=== PATIENT | female | born 1985 | race Caucasian/White ===

== ENCOUNTER 2018-08-11 16:18 | Emergency (ER) | payer MEDICAID ==
--- OUTSIDE RECORDS SUMMARY | 2018-08-11 16:43 | XMS REPORT | Continuity of Care Document ---
:1985 External Reference #:[id number] Author Name Tere Pabon M.D. 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 Onset: 08/04/2018 Bipolar disorder Tere Pabon M.D. Onset: 08/04/2018 Chronic hepatitis C Tere Pabon M.D. Onset: 08/04/2018 Low back pain Silvana Wright MD Onset: 10/14/2013 Family History Date Family Member(s) Observation Comments General Heart Disease General C difficile Social History Type Date Description Comments Sex Unknown Lives With Diet Healthy, Well Balanced Occupation Unemployed ADL's/IADL's Independent with all ADL's Tobacco Use Start: Unknown Never Smoked Cigarettes ETOH Use Denies alcohol use Tobacco Use Start: Unknown Patient has never smoked Smoking Status Reviewed: 08/04/18 Patient has never smoked Allergies, Adverse Reactions, Alerts Active Allergies Reaction Severity Comments Date Ibuprofen GI bleed 11/25/2012 Vicodin unspecified 11/25/2012 Prednisone Critical 02/16/2018 Medications Active Medications SIG Qnty Indications Ordering Provider Date Ventolin HFA Unknown 108(90Base) mcg/Act Aerosol Gabapentin 1 by mouth three Unknown 300mg times a day Capsules Prilosec Unknown 40mg Singulair 1 by mouth every Unknown 10mg Tablets day Zyrtec Allergy 1 tab by mouth Unknown 10mg every night Tablets Dispers Hydroxyzine HCL take 1-2 tablets Unknown 25mg by mouth at Tablets bedtime as needed for insomnia Suboxone Place One Film Unknown 8-2mg Film Under The Tongue Every Day Maximum Daily Dose 1 Film History Medications No Active Medications Unknown 09/29/2013 - 10/14/2013 Tramadol HCL take one tablet 50tabs Sanjay Shipman MD 01/15/2011 - Unknown 50mg Tablets po q 4 hrs prn pain. Meloxicam 1 po qd 30tabs Sanjay Shipman MD 09/11/2010 - 15mg Tablets 07/29/2018 Oxycodone HCL 1 1/2 tab by Unknown - Tablets mouth twice a day 09/29/2013 Geodon Unknown - Capsules 09/29/2013 Oxycodone HCL prn Unknown - Tablets 07/29/2018 Tylenol Unknown - 500mg Tablets 07/29/2018 Suboxine 1 PO Every Meal Unknown - 8mg Films And AT hs 07/29/2018 Klonopin 1 tab every Unknown - 0.5mg Tablets morning as 07/29/2018 needed, 2 tabs at bedtime daily. Ibuprofen 1-2 tabs by mouth Unknown - 200mg Tablets four times a day 07/29/2018 after meals as needed Immunizations Description No Information Available Vital Signs Date Vital Result Comment 08/04/2018 2:33pm BP Systolic Sitting Right Arm 115 mmHg BP Diastolic Sitting Right Arm 81 mmHg Body Temperature 96.8 F Heart Rate 73 /min Height 64.5 inches 5'4.50" Weight 212.00 lb BMI (Body Mass Index) 35.8 kg/m2 BSA (Body Surface Area) 2.02 m2 Winner body weight in kilograms 56 kg 10/14/2013 9:30am BP Systolic Sitting Right Arm 114 mmHg BP Diastolic Sitting Right Arm 78 mmHg Height 64.5 inches 5'4.50" Weight 216.00 lb BMI (Body Mass Index) 36.5 kg/m2 BSA (Body Surface Area) 2.03 m2 10/04/2013 2:25pm BP Systolic Sitting Left Arm 118 mmHg BP Diastolic Sitting Left Arm 60 mmHg Height 64.75 inches 5'4.75" Weight 216.00 lb BMI (Body Mass Index) 36.2 kg/m2 BSA (Body Surface Area) 2.04 m2 08/27/2010 10:10am Height 64 inches 5'4" Weight 235.00 lb 01/03/2008 1:45pm Height 62 inches 5'2" Weight 206.00 lb 02/16/2007 1:43pm Height 62 inches 5'2" Weight 195.00 lb Results Description No Information Available Procedures Description No Information Available Encounters Type Date Location Provider Dx Diagnosis Office Visit 08/04/2018 [facility] & Tere Pabon M.D. 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 Plan of Treatment Future Appointment(s):09/01/2018 1:30 pm - eTre Pabon M.D[facility] at [facility]/30/2018 9:00 am - Zeke Garber MD at 08/04/2018 - Tere Pabon M.D.B18.2 Chronic viral hepatitis CNew Labs:Ethyl Alcohol, Ordered: 08/04/18CK, Ordered: 08/04/18Comprehensive Metabolic Panel, Ordered: 08/04/18CBC W/Automated Diff, Ordered: 08/04/18HCV Rna By PCR (Quant), Ordered: 08/04/18HIV Panel [id number], Ordered: 08/04/18Hepatitis A AB, Total, Ordered: 08/04/18Hepatitis B Surface Antibody, Ordered: 08/04/18Protime, Ordered : 08/04/18Drugs Of Abuse-Urine Screen 7, Ordered: 08/04/18Hepatitis C Virus Genotyping, Ordered: 08/04/18Quantiferon Client Incubated, Ordered: 08/04/18New Xrays:Ultrasound, Abdomen Limited, Ordered: 08/04/18Follow up:4 weeksRecommendations:No IV drug use. No alcohol Less than 2 grams of Tylenol a day if needed.F31.9 Bipolar disorder, [id number] Anxiety disorder, unspecified
== END 2018-08-11 17:32 | disposition left against medical advice (07) ==
LOC: UCCORT 16:18
DX: Z53.21 Procedure and treatment not carried out due to patient leaving prior to being seen by health care provider (principal)

== ENCOUNTER 2018-11-01 15:43 | Emergency (ER) | payer MEDICAID ==
[2018-11-01 16:35] VITALS: BP 145/54
--- NOTE | 2018-11-01 16:42 | UC ---
General HPI - HPI Summary HPI Summary: per triage, Pt was noticed sinus pressure, congestion, R ear pain, and cough since last Thursday. Pt noticed 2-3 days ago that she was having some chest congestion, wheezing, and difficulty breathing when she lays flat. Pt reports she has a hx of asthma and the heat seem to exacerbate it. pt ran out of her inhaler. no fever or chest pain. - History of Current Complaint Chief Complaint: UCGeneralIllness Stated Complaint: VOMITTING Time Seen by Provider: 11/01/18 16:36 Hx Obtained From: Patient Hx Last Menstrual Period: 10/18/18 Onset/Duration: Gradual Onset Pain Intensity: 6 Associated Signs & Symptoms: Positive: Cough, SOB, Weakness. Negative: Chest Pain, Fever, Headache - Allergy/Home Medications Allergies/Adverse Reactions: Allergies Allergy/AdvReac Type Severity Reaction Status Date / Time ibuprofen Allergy Mild Itching Verified 08/11/18 17:25 ketorolac [From Toradol] Allergy Hives Verified 08/11/18 17:25 tramadol Allergy Hives Verified 08/11/18 17:25 Home Medications: Home Medications Buprenorp/Nalox 8-2 MG SL TAB [Suboxone 8-2 mg SL TAB*] 1 tab PO BID 11/01/18 [ History Confirmed 11/01/18] Oxycodone/ASA 5/325 (NF) [Percodan 5/325 (NF)] 1 tab PO ONCE 11/01/18 [History Confirmed 11/01/18] PMH/Surg Hx/FS Hx/Imm Hx - Additional Past Medical History Additional PMH: HepC, chronic headaches. Respiratory History: Asthma - Surgical History Surgical History: Yes Surgery Procedure, Year, and Place: 2 c-sections. tubal ligation. cholecystectomy. hernia repair x 2 - Family History Known Family History: Positive: Cardiac Disease - Social History Alcohol Use: None Substance Use Type: None Substance Use Comment - Amount & Last Used: on suboxone Smoking Status (MU): Never Smoked Tobacco Type: Cigarettes Amount Used/How Often: 1/2 ppd Length of Time of Smoking/Using Tobacco: 13 yrs Have You Smoked in the Last Year: Yes - Immunization History Most Recent Influenza Vaccination: would like to be administered tomorrow Most Recent Tetanus Shot: UTD Most Recent Pneumonia Vaccination: has had in the past Review of Systems All Other Systems Reviewed And Are Negative: Yes Eyes: Negative: Drainage, Eye Redness ENT: Positive: Ear Ache, Nasal Discharge, Sinus Congestion Respiratory: Positive: Shortness Of Breath, Cough Physical Exam Triage Information Reviewed: Yes Appearance: Well-Appearing Vital Signs: Initial Vital Signs Temp 98.8 F 11/01/18 16:24 Pulse 75 11/01/18 16:24 Resp 18 11/01/18 16:24 BP 145/54 11/01/18 16:24 Pulse Ox 100 11/01/18 16:24 Vital Signs Reviewed: Yes Eyes: Positive: Conjunctiva Clear ENT: Positive: Pharynx normal, Nasal congestion, Nasal drainage - clear, TMs normal. Negative: Sinus tenderness Neck: Positive: Supple, Nontender, No Lymphadenopathy Respiratory: Positive: Lungs clear, No respiratory distress, Decreased breath sounds Cardiovascular: Positive: RRR, No Murmur Abdomen Description: Positive: Nontender Musculoskeletal: Positive: ROM Intact Neurological: Positive: Alert Psychological: Positive: Age Appropriate Behavior Skin Exam: Normal Course/Dx - Differential Dx - Multi-Symptom Differential Diagnoses: Other - no concern for bacterial infection - Diagnoses Provider Diagnosis: URI (upper respiratory infection), Asthma flare Discharge - Sign-Out/Discharge Documenting (check all that apply): Patient Departure All imaging exams completed and their final reports reviewed: No Studies - Discharge Plan Condition: Stable Disposition: HOME Prescriptions: Albuterol HFA INHALER* [Ventolin HFA Inhaler*] 2 puff INH Q6H #1 mdi predniSONE [Prednisone 20 MG TAB] 40 mg PO DAILY 5 Days #10 tablet Patient Education Materials: Asthma (ED), Upper Respiratory Infection (DC) Referrals: Angélica Blanca PA [Primary Care Provider] - 7 Days - Billing Disposition and Condition Condition: STABLE Disposition: Home
== END 2018-11-01 16:56 | disposition home or self-care (01) ==
LOC: UCCORT 15:43
DX: J06.9 Acute upper respiratory infection, unspecified (principal); J45.909 Unspecified asthma, uncomplicated
CPT/HCPCS: 99212; G0463

== ENCOUNTER 2019-06-18 18:03 | Emergency (ER) | payer MEDICAID ==
[2019-06-18 18:26] VITALS: BP 144/67
--- NOTE | 2019-06-18 18:52 | UC ---
Throat Pain/Nasal [place] HPI - HPI Summary HPI Summary: Pain and swelling on RIGHT side of neck w/ nausea and vomiting x3 days. Feels like the worst sore throat she's had. [place] feverish. Last emesis this morning. Able to keep fluids down. Taking tylenol 650mg q5hr prn; last dose today 1100. - History of Current Complaint Chief Complaint: UCRespiratory Stated Complaint: SORE THROAT/ RIGHT SIDE FACIAL SWELLING Time Seen by Provider: 06/18/19 18:40 Hx Obtained From: Patient Hx Last Menstrual Period: 05/09/19 Pain Intensity: 10 Pain Scale Used: 0-10 Numeric Associated Signs & Symptoms: Positive: FB Sensation, Fever, Vomiting. Negative : Dysphagia, Drooling, Rash - Allergies/Home Medications Allergies/Adverse Reactions: Allergies Allergy/AdvReac Type Severity Reaction Status Date / Time No Known Allergies Allergy Verified 06/18/19 18:21 Home Medications: Home Medications Albuterol Sulfate [Ventolin Hfa] 108 mcg IN Q4H PRN 11/05/12 [History Confirmed 06/18/19] Albuterol HFA INHALER* [Ventolin HFA Inhaler*] 2 puff INH Q6H #1 mdi 11/01/18 [ Rx Confirmed 06/18/19] PMH/Surg Hx/FS Hx/Imm Hx Previously Healthy: Yes Respiratory History: Asthma - Surgical History Surgical History: Yes Surgery Procedure, Year, and Place: 2 c-sections. tubal ligation. cholecystectomy. hernia repair x 2 - Family History Known Family History: Positive: Cardiac Disease - Social History Alcohol Use: None Substance Use Type: None Substance Use Comment - Amount & Last Used: on suboxone Smoking Status (MU): Never Smoked Tobacco Type: Cigarettes Amount Used/How Often: 1/2 ppd Length of Time of Smoking/Using Tobacco: 13 yrs Have You Smoked in the Last Year: Yes - Immunization History Most Recent Influenza Vaccination: would like to be administered tomorrow Most Recent Tetanus Shot: UTD Most Recent Pneumonia Vaccination: has had in the past Review of Systems All Other Systems Reviewed And Are Negative: Yes Constitutional: Negative: Fever Skin: Negative: Rash, Bruising ENT: Positive: Sore Throat, Sinus Congestion. Negative: Ear Ache Respiratory: Negative: Cough Physical Exam Triage Information Reviewed: Yes Appearance: Well-Appearing Vital Signs: Initial Vital Signs Temp 100 F 06/18/19 18:22 Pulse 114 06/18/19 18:22 Resp 16 06/18/19 18:22 BP 144/67 06/18/19 18:22 Pulse Ox 100 06/18/19 18:22 ENT: Positive: Pharyngeal erythema, TMs normal, Tonsillar swelling - R>L, Muffled voice, Other. Negative: Tonsillar exudate, Trismus, Uvula midline Throat Pain/Nasal Course/Dx - Course Course Of Treatment: suspected tonsillar abscess on exam with a + rapid strep today. she is febrile and has a muffled voice. i strongly advised her to go to the emergency room. she is stable. we discussed risks. - Differential Dx/Diagnosis Differential Diagnosis/HQI/PQRI: Laryngitis, Peritonsillar Abscess, Pharyngitis , Other Provider Diagnosis: Strep pharyngitis Discharge ED - Sign-Out/Discharge Documenting (check all that apply): Patient Departure All imaging exams completed and their final reports reviewed: No Studies - Discharge Plan Condition: Good Disposition: HOME-RECOMMEND TO ED Patient Education Materials: Peritonsillar Abscess (DC) Referrals: Angélica Blanca PA [Primary Care Provider] - Additional Instructions: Please go to the emergency room today for evaluation of a PERITONSILLAR ABSCESS. - Billing Disposition and Condition Condition: GOOD Disposition: Home-Recommend to ED - Attestation Statements Provider Attestation: I was available for consult. This patient was seen by the [facility]. The patient was not presented to , seen by or examined by nc -Kiara Soni MD
== END 2019-06-18 19:15 | disposition home health service (06) ==
LOC: UCCORT 18:03
DX: J02.0 Streptococcal pharyngitis (principal); J45.909 Unspecified asthma, uncomplicated; F17.210 Nicotine dependence, cigarettes, uncomplicated
CPT/HCPCS: 87651; 99212; G0463